=== PATIENT | female | born 1935 | race Caucasian/White ===

== ENCOUNTER 2019-05-01 09:00 | Inpatient (IN) | payer OTHER ==
[~2019-05-01] VITALS: Ht 167.6 cm; Wt 67.6 kg
[2019-05-01 09:10] VITALS: Ht 167.6 cm; Wt 67.6 kg
--- NOTE | 2019-05-01 09:35 | NUR ---
LAB AT BEDSIDE
--- NOTE | 2019-05-01 09:39 | NUR ---
XRAY AT BEDSIDE
--- NOTE | 2019-05-01 09:41 | NUR ---
PATIENT BIBA FOR UNWITNESSED FALL AT FACILITY TODAY. GCS 14, PERRLA, PATIENT IS ACTING APPROPRIATELY. PATIENT DOES HAVE HISTORY OF ALZHEIMERS. IS ABLE TO FULLY OBEY COMMANDS. WAS ABLE TO AMBULATE FROM AMBULANCE GURNEY TO BEDSIDE WITH STEADY GAIT NOTED. PATIENT AAOX3. STS SHE IS IN NO PAIN. DR. SANCHEZ PERFORMED MSE.
--- NOTE | 2019-05-01 09:45 | NUR ---
XRAY IN PROGRESS
--- NOTE | 2019-05-01 09:48 | NUR ---
PT SENT TO CT
[2019-05-01 10:06] LABS: BASOPHIL % 0.5 % (0-2); PLATELET COUNT 178 x10^3mcL (130-400)
[2019-05-01 10:13] LABS: RED CELL DISTRIBUTION WIDTH 14.9 % (11.5-14.5)
[2019-05-01 10:14] LABS: CALCIUM 8.5 mg/dL (8.5-10.1); CARBON DIOXIDE 24.5 mmol/L (21-32); CHLORIDE SERUM 107 mmol/L (98-107); CREATININE SERUM 1.1 mg/dL (0.6-1.0); GLUCOSE SERUM 82 mg/dL (74-106); POTASSIUM SERUM 3.9 mmol/L (3.5-5.1); SODIUM SERUM 141 mmol/L (136-145)
[2019-05-01 10:25] LABS: ALKALINE PHOSPHATASE 128 U/L (46-116); ALT/SGPT 25 U/L (14-59); AST/SGOT 20 U/L (15-37); BILIRUBIN TOTAL 0.78 mg/dL (0.20-1.00); CHOLESTEROL 140 mg/dL (<200); LIPASE 298 IU/L (73-393); MAGNESIUM 2.2 mg/dL (1.8-2.4); T4(THYROXINE) 7.2 ug/dL (4.7-13.3); TOTAL PROTEIN, SERUM 7.3 g/dL (6.4-8.2)
[2019-05-01 10:27] LABS: ALBUMIN 3.3 g/dL (3.4-5.0); HDL CHOLESTEROL 62 mg/dL (40-60)
--- NOTE | 2019-05-01 10:38 | NUR ---
PT RESTING AT BEDSIDE IN NAD. FAMILY AT BEDSIDE. PATIENT STS SHE CURRENTLY IS UNABLE TO URINATE BUT WILL TRY AGAIN AFTER FLUIDS ARE DONE.
--- NOTE | 2019-05-01 11:05 | NUR ---
PT MADE ANOTHER ATTEMPT TO URINATE ON COMMODE AND UNABLE TO URINATE. DAUGHTERS AT BEDSIDE. WILL MAKE ANOTHER ATTEMPT IN 30 MINUTES.
--- NOTE | 2019-05-01 11:15 | NUR ---
PATIENT RESTING AT BEDSIDE IN NAD
[2019-05-01] MEDS ORDERED: GLUCOSAMINE H1500 MG PO (11:26)
[2019-05-01] MEDS ORDERED: MASON NATURAL1000 IU PO (11:26)
[2019-05-01] MEDS ORDERED: LIPI20 PO (11:27)
[2019-05-01] MEDS ORDERED: VITAMIN E1000 UNI2 PO (11:27)
[2019-05-01] MEDS ORDERED: CRANBERRY500 M1 PO (11:27)
[2019-05-01] MEDS ORDERED: NAMENDA10 M2 PO (11:27)
[2019-05-01] MEDS ORDERED: ARICEPT10 MG PO (11:28)
[2019-05-01 11:34] LABS: UA SPECIFIC GRAVITY 1.015 (1.005-1.035); microscopic required? YES; urine erythrocyte 1+ (NEGATIVE)
[2019-05-01 11:48] LABS: AMPHETAMINE QUAL UR NONE DETECTED (See below)
--- NOTE | 2019-05-01 12:00 | NUR ---
PATIENT RESTING AT BEDSIDE IN NAD. FAMILY AT BEDSIDE.
--- NOTE | 2019-05-01 12:39 | NUR ---
PATIENT RESTING AT BEDSIDE IN NAD. BREATHING E/U, BILATERAL CHEST RISE. BED AT LOWEST LEVEL. CALL LIGHT IN REACH. FAMILY AT BEDSIDE
--- NOTE | 2019-05-01 13:06 | NUR ---
REPORT OFF TO RENETTA HILTON
--- NOTE | 2019-05-01 13:50 | NUR ---
RECEIVED PT VIA [employer] FROM E/D, ACCOMPANIED BY RN, TRANSPORTER, AND PT'S DAUGHTERS. A/A/O X 1 (PERSON ONLY AT BASELINE, ABLE TO RECALL BIRTHDAY BUT NOT YEAR), CALM, COOPERATIVE. GENERALIZED WEAKNESS, AMB W/ ASSIST, S/P FALL @ FACILITY, NOTED "PILL ROLLING"; FALL RISK PROTOCOL IN PLACE. DENIES CHEST PAIN OR DISCOMFORT AT THIS TIME. NO ACUTE RESPIRATORY DISTRESS NOTED. ABD SOFT, ROUND, NON-TENDER, NORMOACTIVE BOWEL SOUNDS X 4 QUADS, LAST BM 05/01/19, LOOSE; INCONTINENT OF BOWEL AND BLADDER; DENIES DYSURIA. IV SITE RAC 22G, CDI. ORIENTED PT AND DAUGHTERS TO ROOM, BED CONTROLS, CALL LIGHT SYSTEM. SIDE RAILS UP X 2, BED IN LOW POSITION. WILL ENDORSE TO RENETTA HILTON.
--- NOTE | 2019-05-01 15:12 | NUR ---
PATIENT HAD HX OF ALZHEIMER'S DEMENTIA. OUT OF BED AND WALKED ON UNSTEADY GAIT. PATIENT HAD A LOOSE BM. PUT PATIENT BACK TO BED. CLOSELY WATCH PATIENT FOR SAFETY PRECAUTION.
[2019-05-01 15:19] VITALS: BP 163/80
[2019-05-01 18:24] VITALS: BP 145/85
--- NOTE | 2019-05-01 19:00 | NUR ---
NO S/S OF PAIN. SKIN INTACT, NO OPENED WOUND SEEN. TRUCK BODY BUILDER IN ROOM TO WATCH PT CLOSELY. HAD BM X3, LOOSE. VOID VIA BRP W/ ASSIST. ENDORSED CARE TO NOC NURSE.
--- NOTE | 2019-05-01 19:35 | NUR ---
RECIEVED PT RESTING IN BED WITH NO ACUTE DISTRESS NOTED AT THIS TIME. SITTER AT BEDSIDE, ASSESSMENT PERFORMED, PT IS A/OX1 TO PERSON (BASELINE), PT DENIES PAIN OR SOB AT THIS TIME, ALL NEEDS ATTENDED TO AT THIS TIME, SAFETY PRECAUTIONS IN PLACE, SITTER AT BEDSIDE, WILL CONTINUE TO MONITOR
[2019-05-01 19:45] VITALS: BP 134/81
--- NOTE | 2019-05-01 22:37 | NUR ---
PT RESTING IN BED WITH SITTER AT BEDSIDE, PT A/O X1 TO PERSON, PT DENIES PAIN OR SOB AT THIS TIME, ALL NEEDS ATTENDED TO AT THIS TIME, SAFETY PRECAUTIONS IN PLACE, WILL CONTIUE TO MONITOR
--- NOTE | 2019-05-02 00:05 | NUR ---
PT RESTING IN BED WATCHING TV, NO ACUTE DISTRESS NOTED AT THIS TIME, PT DENIES RAMIREZ OR DIZZINESS, PT IS A/OX1 TO PERSON, SITTER AT BEDSIDE, ALL NEEDS ATTENDED TO, WILL CONTINUE TO MONITOR
--- NOTE | 2019-05-02 03:15 | NUR ---
PT RESTING IN BED WITH TV ON, PT STABLE AND CALM, SITTER AT BEDSIDE, SAFETY PRECAUTIONS IN PLACE, WILL CONTINUE TO MONITOR
--- NOTE | 2019-05-02 05:18 | NUR ---
PT RESTED THROUGH OUT THE EVENING WITH NO ACUTE DISTRESS, PT DENIED RAMIREZ OR DIZZINESS THROUGH OUT THE SHIFT, PT REMAINED A/OX1 TO PERSON THROUGH THE NIGHT. SITTER REMAINED AT BEDSIDE THROUGH SHIFT, SAFETY PRECAUTIONS MAINTAINED, ALL NEEDS ATTENDED TO WILL CONTINUE TO MONTIOR AND ENDORSE CARE
[2019-05-02 05:33] VITALS: BP 143/80
[2019-05-02 06:26] LABS: CALCIUM 8.6 mg/dL (8.5-10.1); CARBON DIOXIDE 29.3 mmol/L (21-32); CHLORIDE SERUM 109 mmol/L (98-107); GLUCOSE SERUM 87 mg/dL (74-106); POTASSIUM SERUM 3.9 mmol/L (3.5-5.1); SODIUM SERUM 144 mmol/L (136-145)
[2019-05-02 06:31] LABS: BASOPHIL % 0.6 % (0-2); PLATELET COUNT 166 x10^3mcL (130-400)
[2019-05-02 06:35] LABS: RED CELL DISTRIBUTION WIDTH 14.9 % (11.5-14.5)
--- NOTE | 2019-05-02 07:53 | NUR ---
RECIVED HAND OFF REPORT FROM NIGHT NURSE, PATIENT FOUND LAYING IN BED A/O X1 TO SELF, NORMAL FOR PATIENT PER HX, ON ROOM AIR. PATIENT DENIED COMPLAINTS AT THIS TIME. CALL LIGHT WITHIN REACH, SITTER IN ROOM. WILL CONTINUE TO MONITOR
[2019-05-02 09:05] VITALS: BP 140/83
--- NOTE | 2019-05-02 09:24 | NUR ---
ADMINSTERED MEDICATIONS OER MAR. PATIENT FOLLOWS DIRECTIONS WELL, SWALLOWS WITHOUT ISSUES. ASSISTED PATIENT TO AMBULATE TO RESTROOM FOR BOWEL MOVEMENT AND BACK TO BED. GAIT STEADY. CALL LIGHT WITHIN REACH, SITTER IN ROOM
--- NOTE | 2019-05-02 11:28 | NUR ---
GAVE HAND OFF REPORT TO CATHY JACKSON ON . PATIENT MOVED ROOMS DUE TO NEED FOR SITTER. PATIENT FAMILY WITH PATIENT. MOVED PATIENT TO NEW ROOM, [facility], VIA BED.
--- NOTE | 2019-05-02 11:30 | NUR ---
RESUMED CARE OF THIS PT FROM [address] [place] [address]. PT RECEIVED AWAKE AND ALERT. IN NO RESP. DISTRESS. FAMILY AT BEDSIDE. NO C/O PAIN OR DISCOMFORT AT THIS TIME. WILL CONTINUE WITH PLAN OF CARE.
--- NOTE | 2019-05-02 16:34 | NUR ---
RESTING IN BED. FAMILY AT BEDSIDE. NO C/O PAIN OR DISCOMFORT AT THIS TIME. NEW IV LINE INSERTED TO LFA BY A STUDENT NURSE ABHIJIT STUDENT INSTRUCTOR SUPERVISION. PT TOLEARTED WELL, IVF INFUSING.
[2019-05-02 17:26] VITALS: BP 150/93
[2019-05-02 17:29] VITALS: BP 150/93
--- NOTE | 2019-05-02 18:50 | NUR ---
PT REMAINS IN NO DISTRESS, AWAKE AND ALERT. SAFETY MEASURES IN PLACE. NO C/O PAIN OR DISCOMFORT AT THIS TIME. NO CHANGES IN VS. IVF INFUSING WELL AND SITE CLEAR. CALL LIGHT WITHIN REACH. WILL BE ENDORSED TO INCOMING SHIFT.
--- NOTE | 2019-05-02 19:40 | NUR ---
RECIEVED PT IN NO ACUTE DISTRESS. AOX2, FORGETFUL. DENIES SYNCOPE. MED SURG. BREATHING E/U. DENIES PAIN. IV TO RFA, PATENT, NO REDNESS/SWELLING. SITTER AT BEDSIDE. BED IN LOWEST POSITIN, 2 SIDE RAILS UP, CALL LIGHT IN REACH. INSTRUCTED TO CALL FOR ASSISTANCE.
[2019-05-02 19:41] VITALS: BP 148/92
--- NOTE | 2019-05-03 00:30 | NUR ---
RESTING IN BED WITH EYES CLOSED. BREATHING E/U. NO ACUTE DISTRESS NOTED. WILL CONTINUE TO MONITOR.
[2019-05-03 05:25] VITALS: BP 131/77
[2019-05-03 06:32] LABS: BASOPHIL % 0.6 % (0-2); PLATELET COUNT 183 x10^3mcL (130-400)
[2019-05-03 06:42] LABS: CALCIUM 8.8 mg/dL (8.5-10.1); CHLORIDE SERUM 108 mmol/L (98-107); CREATININE SERUM 1.1 mg/dL (0.6-1.0); GLUCOSE SERUM 105 mg/dL (74-106); POTASSIUM SERUM 3.6 mmol/L (3.5-5.1); SODIUM SERUM 145 mmol/L (136-145)
--- NOTE | 2019-05-03 06:45 | NUR ---
NO ACUTE DISTRESS NOTED. NO ACUTE CHANGES. WILL ENDORSE TO ONCOMING RN.
[2019-05-03 06:54] LABS: RED CELL DISTRIBUTION WIDTH 14.7 % (11.5-14.5)
--- NOTE | 2019-05-03 07:30 | NUR ---
RECEIVED PATIENT IN BED, AWAKE ALERT FORGETFUL AT TIMES, AND SLIGHT [place] NOTED. IVF INFUSING WELL TO RT F/A, SITE PATENT. DENIES ANY PAIN OR DISCOMFORT. PATIENT REMINDED AND INSTRUCTED ON HOW TO USE CALL LIGHT FOR ASSIST, AND INSTRUCTED TO CALL FOR ASSIST OOB. NO ACUTE DISTRESS NOTED.
[2019-05-03 08:37] VITALS: BP 141/82
--- NOTE | 2019-05-03 13:15 | NUR ---
PATIENT'S PLAN OF CARE WAS DISCUSSED AND REVIEWED WITH PATROL DRIVER:GEETA MAYNARD. I HAVE REVIEWED THE DATA COLLECTION BY PATROL DRIVER (NAME):GEETA MAYNARD. ENTERED ON (DATE/TIME):05/03/19 I CONCUR WITH THE DATA AND ANY EXCEPTIONS OR COMMENTS ARE LISTED BELOW:
--- NOTE | 2019-05-03 16:31 | NUR ---
PHYSICAL THERAPY DAILY NOTES CO-SIGN All documentation done by the Wrecking Car Driver for 05/03/19 has been reviewed. I agree with the documentation. Reviewed/Co-Signed by: Magy Calhoun PT Documentation Done by:MEÑO MORENO PTA
[2019-05-03 17:06] VITALS: BP 146/92
--- NOTE | 2019-05-03 17:54 | NUR ---
PATIENT SITTIING UP IN CHAIR IN ROOM EATING DINNER TRAY DAUGHTER AT BEDSIDE. P.T. WAS INTO AMBULATE PATIENT THIS AFTERNOON. PATIENT TOLERATED WELL. IVF INFUSING WELL, SITE PATENT. PATIENT DENIES ANY PAIN OR DISCOMFORT. ALERT BUT FORGETFUL.
--- NOTE | 2019-05-03 20:00 | NUR ---
RECEIVED PT IN BED. RESTING QUIETLY. ALERT AND FORGETFUL AT TIMES. DENIES HEADACHE/ DIZZINESS. RESP. EVEN AND UNLABORED. ON ROOM AIR, NO ACUTE DISTRESS NOTED. IVF, NS AT 50ML/HR, INTACT AND INFUSING VIA RFA, SITE CLEAR. DENIES PAIN OR ANY DISCOMFORT AT THIS TIME. ASSISTED WITH HS CARE. CALL LIGHT WITHIN REACH. INSTRUCTED TO CALL FOR ASSIST. IF NEEDED AND PT VERBALIZED UNDERSTANDING. WILL CONTINUE TO MONITOR.
[2019-05-03 20:30] VITALS: BP 161/84
--- NOTE | 2019-05-04 01:55 | NUR ---
RESTING QUIETLY WITH EYES CLOSED, APPEARS ASLEEP, EASILY AROUSABLE. RESP. EVEN AND UNLABORED, NO ACUTE DISTRESS NOTED. WILL CONTINUE TO MONITOR.
[2019-05-04 06:07] VITALS: BP 149/78
[2019-05-04 06:20] LABS: CALCIUM 8.8 mg/dL (8.5-10.1); CARBON DIOXIDE 27.2 mmol/L (21-32); CHLORIDE SERUM 107 mmol/L (98-107); GLUCOSE SERUM 87 mg/dL (74-106); POTASSIUM SERUM 3.7 mmol/L (3.5-5.1); SODIUM SERUM 143 mmol/L (136-145)
[2019-05-04 06:21] LABS: BASOPHIL % 0.6 % (0-2); PLATELET COUNT 176 x10^3mcL (130-400)
--- NOTE | 2019-05-04 06:27 | NUR ---
AFEBRILE AND VITAL SIGNS STABLE. SLEPT WELL. NO COMPLAINTS NOTED. DENIES PAIN OR ANY DISCOMFORT AT THIS TIME. RESP. EVEN AND UNLABORED. NO ACUTE DISTRESS NOTED. IV SITE LEAKING,DISCONT. NEW IV SITE RESTARTED ON LFA WITH #22G ANGIO. IVF INFUSING WELL AT THIS TIME. WILL ENDORSE TO INCOMING NURSE.
[2019-05-04 07:01] LABS: RED CELL DISTRIBUTION WIDTH 14.7 % (11.5-14.5)
--- NOTE | 2019-05-04 07:18 | NUR ---
ASSUMED CARE OF PATIENT. SEEN AWAKE AND ALERT THIS AM. NO COMPLAINTS OF PAIN OR DISCOMFORT. NO APPARENT DISTRESS NOTED. IV TO LFA PATENT AND INFUSING NS AT 50 ML/HR. WILL CONTINUE TO MONITOR.
[2019-05-04 08:56] VITALS: BP 139/79
[2019-05-04] MEDS ORDERED: CIPROFLOXACIN500 MG PO (10:44)
--- NOTE | 2019-05-04 10:52 | NUR ---
PATIENT DAUGHTER IN ROOM, NOTIFIED OF TRANSFER BACK TO [facility]. REQUESTING TO SPEAK WITH PROVIDER. FORMING MACHINE UPKEEP MECHANIC MICHAELLE NOTIFIED.
--- NOTE | 2019-05-04 11:17 | NUR ---
PATIENTS DAUGHTER TO TAKE PATIENT BACK TO [facility].
[2019-05-04 11:18] VITALS: BP 139/79
[2019-05-04] MEDS ORDERED: EPZICOM1 TAB (11:22)
--- NOTE | 2019-05-04 12:00 | NUR ---
ATTEMPTING TO CONTACT SUMNER GOLDEN TO GIVE REPORT. MESSAGE LEFT FOR LEAD PRESS OPERATOR.
--- NOTE | 2019-05-04 12:37 | NUR ---
REPORT GIVEN TO ZACH JACKSON AT [facility].
--- NOTE | 2019-05-04 13:13 | NUR ---
PATIENT DISCHARGED BTY WHEELCHAIR WITH DAUGHTER AT SIDE. DAUGHTER TO TRANPSORT PATIENT BACK TO [facility]. LEFT WITH ALL DISCHARGE PAPERWORK. ID BANDS REMOVED. NO COMPLAINTS OF PAIN OR DISCOMFORT UPON DISCHARGE. NO APPARENT DISTRESS WAS NOTED. LEFT WITH ALL BELONGINGS.
--- NOTE | 2019-05-04 15:50 | NUR ---
PHYSICAL THERAPY DAILY NOTES CO-SIGN All documentation done by the Acidizer Helper for 05/04/19 has been reviewed. I agree with the documentation. Reviewed/Co-Signed by: Magy Calhoun PT Documentation Done by:MEÑO MORENO PTA
== END 2019-05-04 13:15 | DRG 690 ==
LOC: ED 09:00 → MU 12:35 → DU 12:35 → MU 13:52
PROVIDERS: Emergency Medicine; Internal Medicine; ADMIT Internal Medicine
DX: N39.0 Urinary tract infection, site not specified (principal); R55 Syncope and collapse; B96.1 Klebsiella pneumoniae [K. pneumoniae] as the cause of diseases classified elsewhere; S05.11XA Contusion of eyeball and orbital tissues, right eye, initial encounter; F03.90 Unspecified dementia, unspecified severity, without behavioral disturbance, psychotic disturbance, mood disturbance, and anxiety; E78.5 Hyperlipidemia, unspecified; Z68.24 Body mass index [BMI] 24.0-24.9, adult; W19.XXXA Unspecified fall, initial encounter; Y92.129 Unspecified place in nursing home as the place of occurrence of the external cause
CPT/HCPCS: 82962; 97116-GP; 97530-GP; G0378; G0480; J0696; J1956; J7030; Q0092